=== PATIENT | male | born 1955 | race Caucasian/White ===

== ENCOUNTER → 2016-10-01 | Outpatient (REF) | payer OTHER | LOC: M LAB REF 16:21 | PROVIDERS: ATTEND Physician Assistant | DX: J02.9 Acute pharyngitis, unspecified (principal) ==

== ENCOUNTER 2017-09-04 21:00 | Emergency (ER) | payer OTHER ==
[2017-09-04] MEDS: LIDOCAINE 2% W/EPIN INJ 20ML **PRES FREE INJ (22:22)
== END 2017-09-04 23:40 | disposition home or self-care (01) ==
LOC: M ED 21:00
DX: S51.011A Laceration without foreign body of right elbow, initial encounter (principal); W01.10XA Fall on same level from slipping, tripping and stumbling with subsequent striking against unspecified object, initial encounter; Y92.099 Unspecified place in other non-institutional residence as the place of occurrence of the external cause; Y93.9 Activity, unspecified; Y99.9 Unspecified external cause status; M19.021 Primary osteoarthritis, right elbow
CPT/HCPCS: 73080

== ENCOUNTER → 2018-02-17 | Outpatient (REF) | payer OTHER | LOC: M LAB REF 15:38 | DX: L08.9 Local infection of the skin and subcutaneous tissue, unspecified (principal) ==

== ENCOUNTER → 2018-03-18 | Outpatient (REF) | payer OTHER ==
[2018-03-19 14:13] LABS: PSA % FREE 6.9 % (.); PSA FREE 0.35 ng/mL; PSA TOTAL 5.1 ng/mL (0.0-4.0)
== END ==
LOC: M LAB REF 12:04
DX: N40.1 Benign prostatic hyperplasia with lower urinary tract symptoms (principal)
CPT/HCPCS: 84154

== ENCOUNTER → 2018-09-23 | Outpatient (REF) | payer OTHER ==
[2018-09-24 14:57] LABS: PSA FREE 0.48 ng/mL
== END ==
LOC: M LAB REF 12:29
PROVIDERS: ATTEND Family Medicine
DX: R97.20 Elevated prostate specific antigen [PSA] (principal)

== ENCOUNTER → 2019-04-07 | Outpatient (REF) | payer OTHER ==
[2019-04-09 15:41] LABS: PSA TOTAL 2.8 ng/mL (0.0-4.0)
== END ==
LOC: M LAB REF 16:31
PROVIDERS: ATTEND Family Medicine
DX: R97.20 Elevated prostate specific antigen [PSA] (principal)

== ENCOUNTER → 2021-09-04 | Outpatient (CLI) | payer OTHER | LOC: M WUC 13:01 | DX: S52.502A Unspecified fracture of the lower end of left radius, initial encounter for closed fracture (principal); M79.5 Residual foreign body in soft tissue; X58.XXXA Exposure to other specified factors, initial encounter; Y92.9 Unspecified place or not applicable; Y93.9 Activity, unspecified; Y99.9 Unspecified external cause status ==

== ENCOUNTER → 2023-04-28 | Outpatient (CLI) | payer MEDICARE, OTHER | LOC: M WUC 15:56 | PROVIDERS: ATTEND Physician Assistant Medical | DX: R06.02 Shortness of breath (principal) ==

== ENCOUNTER 2023-11-05 09:28 | Emergency (ER) | payer MEDICARE, OTHER ==
[~2023-11-05] VITALS: Ht 182.9 cm; Wt 92.3 kg
[2023-11-05] MEDS ORDERED: ISOVUE-370 76% 100ML VIAL As Ordered ONE (09:49)
[2023-11-05] MEDS ORDERED: niCARdipine 40MG IN 200ML NACL IV BAG As Ordered ONE (10:10)
[2023-11-05] MEDS: niCARdipine IV 40 MG in IV 1 EA IV SCH (10:20)
[2023-11-05 10:24] LABS: BASO # 0.1 10^3/uL (0.0-0.2); BASO % 0.7 % (0.0-1.0); EOS # 0.1 10^3/uL (0.0-0.5); EOS % 0.7 % (0.0-3.0); HEMOGLOBIN 14.8 g/dl (13.5-17.5); LYMPH % 13.5 % (24.0-44.0); MEAN CORPUSCULAR HEMOGLOBIN 29.1 pg (27.0-33.0); MEAN CORPUSCULAR HGB CONC 32.2 g/dl (32.0-36.5); MEAN CORPUSCULAR VOLUME 90.6 fl (80.0-96.0); MONO # 0.4 10^3/uL (0.0-0.8); NEUTROPHILS # 5.5 10^3/uL (1.5-8.5); NEUTROPHILS % 78.8 % (36.0-66.0); PLATELET COUNT, AUTOMATED 285 10^3/uL (150-450); RED BLOOD COUNT 5.08 10^6/uL (4.30-6.10)
[2023-11-05] MEDS: NS 1,000 ML IV ONE (10:28)
[2023-11-05] MEDS: levETIRAcetam INJection 1,000 MG in D5W 100 ML IV ONE (10:28)
[2023-11-05] MEDS: niMODipine 30 MG CAP PO STA (10:28)
[2023-11-05 10:37] LABS: INR 0.98; PARTIAL THROMBOPLASTIN TIME 24.6 SECONDS (24.8-34.2); PROTHROMBIN TIME 12.7 SECONDS (12.5-14.5)
[2023-11-05 10:40] VITALS: BP 129/57
[2023-11-05 10:42] LABS: BLOOD UREA NITROGEN 21 MG/DL (9-23); CALCIUM LEVEL 9.2 MG/DL (8.3-10.6); CARBON DIOXIDE LEVEL 29 MMOL/L (20-31); CHLORIDE LEVEL 107 MMOL/L (98-107); CK-MB VALUE MASS 1.5 NG/ML (<3.6); CPK CREATINE PHOSPHOKINASE 176 U/L (46-171); CREATININE FOR GFR 1.15 MG/DL (0.70-1.30); GLOMERULAR FILTRATION RATE > 60.0 (>49); GLUCOSE, FASTING 116 MG/DL (74-106); MB/CK RELATIVE INDEX 0.85 (< OR =4); POTASSIUM SERUM 4.7 MMOL/L (3.5-5.1); SODIUM LEVEL 141 MMOL/L (136-145)
[2023-11-05 10:43] VITALS: TEMP 97; O2SAT 99
== END 2023-11-05 10:50 | disposition short-term general hospital (02) ==
LOC: M ED 09:28
DX: I60.9 Nontraumatic subarachnoid hemorrhage, unspecified (principal); I10 Essential (primary) hypertension; R00.1 Bradycardia, unspecified; F10.10 Alcohol abuse, uncomplicated
CPT/HCPCS: 70450; 70496; 70498; 71045; 80047; 80048; 82550; 82553; 84484; 85025; 85610; 85730; 86850; 86900; 86901; 93005; 93041; 94760; 96365; 99285; J1953; Q9967

== ENCOUNTER → 2025-03-01 | Outpatient (CLI) | payer MEDICARE, OTHER | LOC: M WUC 12:32 | DX: M79.641 Pain in right hand (principal) ==